=== PATIENT | male | born 1950 | race Caucasian/White ===

== ENCOUNTER 2017-05-17 06:14 | Emergency (ER) | payer MEDICARE ==
[~2017-05-17] VITALS: Ht 170.2 cm; Wt 74.8 kg
[2017-05-17] MEDS ORDERED: METCAR500 PO (06:32)
[2017-05-17] MEDS ORDERED: METPRE4DP PO (08:38)
[2017-05-17] MEDS ORDERED: Percocet 10-321 EACH PO (08:38)
[2017-05-17] MEDS ORDERED: Zofran Odt8 MG SL (08:38)
== END 2017-05-17 09:00 | disposition home or self-care (01) ==
LOC: ER 06:14
DX: G89.29 Other chronic pain (principal); M54.5 Low back pain; Z88.5 Allergy status to narcotic agent
CPT/HCPCS: 96372; 99284; J1100; J1170

== ENCOUNTER 2024-06-24 22:33 | Emergency (ER) | payer OTHER ==
[~2024-06-24] VITALS: Ht 170.2 cm; Wt 79.4 kg
[~2024-06-24 22:33] MED LIST: METCAR500 PO; METPRE4DP PO; Percocet 10-321 EACH PO; Zofran Odt8 MG SL
[2024-06-24 23:22] VITALS: BP 137/106
== END 2024-06-24 23:31 | disposition left against medical advice (07) ==
LOC: ER 22:33
DX: R10.30 Lower abdominal pain, unspecified (principal); Z53.29 Procedure and treatment not carried out because of patient's decision for other reasons
CPT/HCPCS: 99281